=== PATIENT | male | born 1985 | race Two or more races ===

== ENCOUNTER 2025-02-14 12:48 | Emergency (ER) | payer OTHER ==
[~2025-02-14] VITALS: Ht 185.4 cm; Wt 102.1 kg
[2025-02-14 13:37] VITALS: BP 127/78; O2SAT 100
[2025-02-14] MEDS ORDERED: UROXATRAL10 MG PO (13:37)
[2025-02-14] MEDS ORDERED: 0.9 % SODIUM CHLORIDE 500 ML IV ONE (15:45)
[2025-02-14] MEDS ORDERED: CEFTRIAXONE SODIUM 2,000 MG VIAL IV ONE (15:45)
[2025-02-14] MEDS ORDERED: CEFTRIAXONE SODIUM 2,000 MG VIAL ONE (15:54)
[2025-02-14 15:59] LABS: BASO % 0.1 % (0.1-1.2); EOS # 0.07 (0.04-0.54); HEMATOCRIT 44.2 % (40.1-51.0); LYMPH # 2.42 (1.18-3.74); LYMPH % 32.9 % (19.3-53.1); MEAN CORPUSCULAR HEMOGLOBIN 29.1 pg (25.6-32.2); MONO # 0.51 (0.24-0.82); MONO % 6.9 % (4.7-12.5); NEUT # 4.34 (1.56-6.13); PLATELET COUNT 214 K/uL (163-369); RED BLOOD COUNT 5.15 M/uL (4.63-6.08)
[2025-02-14 16:34] LABS: ALBUMIN 4.3 gm/dL (3.4-5.0); BILIRUBIN TOTAL 0.74 mg/dL (0.3-1.2); CALCIUM 9.7 mg/dL (8.5-10.1); CREATININE SERUM 1.42 mg/dL (0.70-1.30); GFR 56.1; GLOBULINA 3.7 G/DL (2.4-3.5); POTASSIUM 4.66 mEq/L (3.5-5.1)
[2025-02-14 16:44] LABS: ERYTHROCYTE SEDIMENTATION RATE 10 mm/hr (0-15)
[2025-02-14] MEDS ORDERED: CEPHALEXIN500 M1 PO (19:58)
== END 2025-02-14 20:19 | disposition home or self-care (01) ==
LOC: ER 13:28
PROVIDERS: Emergency Medicine
DX: L02.91 Cutaneous abscess, unspecified (principal); R22.0 Localized swelling, mass and lump, head
CPT/HCPCS: 36415; 70487; Q9965